=== PATIENT | female | born 1935 | race Caucasian/White ===

== ENCOUNTER 2024-08-22 17:44 | Inpatient (IN) | payer MEDICARE ==
[~2024-08-22] VITALS: Ht 162.5 cm; Wt 71.8 kg
[~2024-08-22 17:44] MED LIST: ALDACTONE25 M1 PO; ALDACTONE25 MG PO; AMLODIPINE BESYL5 MG PO; AMOX-CLAV 875-1 EACH PO; AMOXICILLIN500 M2 PO; B121000 MCG/1 IM; CIPRO500 MG PO; ELIQUIS5 M1 PO; FEROSUL325 M1 PO; IRON325 M1 PO; KLOR-CON 1010 ME1 PO; METFORMIN HYDR500 MG PO; METOPROLOL SUCC50 M1 PO; ONDANSETRON HYDR4 MG PO; ONDANSETRON4 MG PO; PANTOPRAZOLE SO40 MG PO; POTASSIUM CHLO10 ME4 PO; PROTONIX40 MG PO; SOAANZ20 M1 PO; TORSEMIDE20 MG PO; VASCEPA1 G1 PO; VIBRAMYCIN HYC100 MG PO; VITAMIN D350 MC2 PO
[2024-08-22 17:51] VITALS: BP 119/59
[2024-08-22 18:09] LABS: BASO % 0.4 % (0.0-1.0); EOS # 0.2 10*3/uL (0.0-0.4); EOS % 2.1 % (1.0-4.0); HEMATOCRIT 41.5 % (37.0-47.0); MEAN CELL VOLUME 95.4 fl (81.0-99.0); MEAN CORPUSCULAR HGB 30.8 pg (27.0-31.0); MEAN CORPUSCULAR HGB CONC 32.3 g/dl (33.0-37.0); MEAN PLATELET VOLUME 9.1 fl (9.6-12.3); MONO # 0.9 10*3/uL (0.1-1.0); MONO % 8.7 % (3.0-9.0); NEUT # 7.8 10*3/uL (2.3-7.9); NEUT % 74.9 % (47.0-73.0); PLATELET COUNT AUTOMATED 214 10*3/uL (130-400); RED BLOOD COUNT 4.35 10*6/uL (4.10-5.10); RED CELL DISTRI WIDTH 13.3 % (0-14.5); WHITE BLOOD COUNT 10.4 10*3/uL (4.8-10.8)
[2024-08-22 18:27] LABS: POTASSIUM 4.1 mmol/L (3.4-5.1)
[2024-08-22] MEDS ORDERED: Meropenem 1 GM in SODIUM CHLORIDE 0.9% 100 ML IV ONE (18:30)
[2024-08-22 19:55] VITALS: BP 114/63
[2024-08-22] MEDS ORDERED: BISACODYL 5 MG TAB PO PRN (20:50)
[2024-08-22] MEDS ORDERED: Acetaminophen/Hydrocodone 5 MG/325 MG TABLET PO PRN (20:50)
[2024-08-22] MEDS ORDERED: BISACODYL 10 MG SUPP R PRN (20:50)
[2024-08-22] MEDS ORDERED: Ondansetron Hydrochloride 4 MG/2 ML VIAL IV PRN (20:50)
[2024-08-22] MEDS ORDERED: ACETAMINOPHEN 325 MG TAB PO PRN (20:50)
[2024-08-22] MEDS ORDERED: ACETAMINOPHEN 650 MG SUPP R PRN (20:50)
[2024-08-22] MEDS ORDERED: TEMAZEPAM 15 MG CAP PO PRN (20:50)
[2024-08-22] MEDS ORDERED: FUROSEMIDE 20 MG/2 ML VIAL IV ONE (21:10)
[2024-08-22] MEDS ORDERED: DEXTROSE 10 % IN WATER 250 ML IV PRN (21:50)
[2024-08-22] MEDS ORDERED: INSULIN LISPRO 1 UNIT/0.01 ML SQ SCH (22:00)
[2024-08-22] MEDS ORDERED: APIXABAN 5 MG TAB PO SCH (22:00)
[2024-08-22 22:07] LABS: BILIRUBIN Negative (Negative); BLOOD Negative (Negative); CLARITY Clear (Clear); COLOR Yellow (Yellow); GLUCOSE Negative (Negative); KETONE Negative (Negative); LEUKO ESTERASE Trace (Negative); NITRITE Positive (Negative); PH 5.5 (4.5-8.0); SPECIFIC GRAVITY 1.015 (1.001-1.030); UROBILINOGEN 0.2 E.U./dl (0.0-1.0)
[2024-08-22 22:27] LABS: BACTERIA 1+
[2024-08-22] MEDS ORDERED: Vancomycin Hydrochloride 1,000 MG in SODIUM CHLORIDE 0.9% 250 ML IV SCH (23:00)
[2024-08-23 00:02] VITALS: BP 113/60
[2024-08-23] MEDS ORDERED: Pantoprazole Sodium 40 MG TAB PO SCH (06:00)
[2024-08-23 06:38] LABS: BASO % 0.4 % (0.0-1.0); EOS # 0.2 10*3/uL (0.0-0.4); EOS % 2.1 % (1.0-4.0); HEMATOCRIT 39.7 % (37.0-47.0); MEAN CORPUSCULAR HGB 30.9 pg (27.0-31.0); MEAN CORPUSCULAR HGB CONC 32.5 g/dl (33.0-37.0); MEAN PLATELET VOLUME 9.2 fl (9.6-12.3); MONO # 0.9 10*3/uL (0.1-1.0); MONO % 8.9 % (3.0-9.0); NEUT # 7.3 10*3/uL (2.3-7.9); NEUT % 76.6 % (47.0-73.0); PLATELET COUNT AUTOMATED 188 10*3/uL (130-400); RED BLOOD COUNT 4.18 10*6/uL (4.10-5.10); RED CELL DISTRI WIDTH 13.4 % (0-14.5); WHITE BLOOD COUNT 9.6 10*3/uL (4.8-10.8)
[2024-08-23 07:12] LABS: POTASSIUM 3.8 mmol/L (3.4-5.1); TOTAL PROTEIN 6.4 gm/dL (6.0-8.0)
[2024-08-23 08:04] VITALS: BP 103/65
[2024-08-23] MEDS ORDERED: METOPROLOL SUCCINATE XR 50 MG TAB PO SCH (10:00)
[2024-08-23] MEDS ORDERED: SPIRONOLACTONE 25 MG TAB PO SCH (10:00)
[2024-08-23] MEDS ORDERED: FUROSEMIDE 20 MG/2 ML VIAL IV SCH (10:00)
[2024-08-23] MEDS ORDERED: POTASSIUM CHLORIDE 10 MEQ TAB PO SCH (10:00)
[2024-08-23] MEDS ORDERED: Meropenem 1 GM in SODIUM CHLORIDE 0.9% 100 ML IV SCH (10:00)
[2024-08-23] MEDS ORDERED: MUPIROCIN 15 GM TUBE T SCH (14:17)
[2024-08-23 16:08] VITALS: BP 102/36
[2024-08-23] MEDS ORDERED: Meropenem 50 ML IV SCH (18:00)
[2024-08-23 18:41] VITALS: BP 142/87
[2024-08-23] MEDS ORDERED: NYSTOP60 GM T (19:01)
[2024-08-23] MEDS ORDERED: TYLENOL325 M2 PO (19:03)
[2024-08-23 20:00] VITALS: BP 116/79
[2024-08-23] MEDS ORDERED: NYSTATIN 15 GM BOT T SCH (22:00)
[2024-08-24] VITALS: BP 122/50
[2024-08-24 06:48] LABS: POTASSIUM 4.3 mmol/L (3.4-5.1)
[2024-08-24 08:00] VITALS: BP 129/76
[2024-08-24 12:00] VITALS: BP 126/76
[2024-08-24 16:00] VITALS: BP 129/74
[2024-08-24 20:00] VITALS: BP 123/67
[2024-08-25] VITALS: BP 128/72
[2024-08-25 06:32] LABS: BASO % 0.3 % (0.0-1.0); EOS # 0.3 10*3/uL (0.0-0.4); EOS % 3.8 % (1.0-4.0); HEMATOCRIT 39.4 % (37.0-47.0); MEAN CELL VOLUME 94.5 fl (81.0-99.0); MEAN CORPUSCULAR HGB 30.9 pg (27.0-31.0); MEAN CORPUSCULAR HGB CONC 32.7 g/dl (33.0-37.0); MEAN PLATELET VOLUME 9.3 fl (9.6-12.3); MONO # 0.9 10*3/uL (0.1-1.0); MONO % 10.5 % (3.0-9.0); NEUT % 68.2 % (47.0-73.0); PLATELET COUNT AUTOMATED 187 10*3/uL (130-400); RED BLOOD COUNT 4.17 10*6/uL (4.10-5.10); RED CELL DISTRI WIDTH 13.8 % (0-14.5); WHITE BLOOD COUNT 8.8 10*3/uL (4.8-10.8)
[2024-08-25 06:44] LABS: POTASSIUM 4.5 mmol/L (3.4-5.1)
[2024-08-25 08:00] VITALS: BP 155/68
[2024-08-25] MEDS ORDERED: Meropenem 1 GM VIAL IV ONE (08:17)
[2024-08-25] MEDS ORDERED: SODIUM CHLORIDE 0.9% 50 ML BAG IV ONE (08:17)
[2024-08-25] MEDS ORDERED: Vancomycin Hydrochloride 1,000 MG in SODIUM CHLORIDE 0.9% 250 ML IV SCH (10:00)
[2024-08-25] MEDS ORDERED: TORSEMIDE 20 MG TAB PO SCH (10:00)
[2024-08-25 12:00] VITALS: BP 118/55; BP 146/66
[2024-08-25 16:00] VITALS: BP 119/60
[2024-08-25 20:00] VITALS: BP 149/90
[2024-08-26] VITALS: BP 133/83
[2024-08-26 06:57] LABS: POTASSIUM 3.8 mmol/L (3.4-5.1)
[2024-08-26 08:00] VITALS: BP 114/68
[2024-08-26] MEDS ORDERED: ALDACTONE25 M1 PO (11:21)
[2024-08-26 12:00] VITALS: BP 132/73
== END 2024-08-26 17:28 | disposition home health service (06) | DRG 602 ==
LOC: ED 17:44 → EDHOLD 18:36 → 4E 08-23 17:57
PROVIDERS: Emergency Medicine; Student in an Organized Health Care Education/Training Program; ADMIT Internal Medicine; ATTEND Internal Medicine
DX: L03.116 Cellulitis of left lower limb (principal); N17.0 Acute kidney failure with tubular necrosis; E87.20 Acidosis, unspecified; I50.22 Chronic systolic (congestive) heart failure; N30.00 Acute cystitis without hematuria; I13.0 Hypertensive heart and chronic kidney disease with heart failure and stage 1 through stage 4 chronic kidney disease, or unspecified chronic kidney disease; I48.21 Permanent atrial fibrillation; B96.89 Other specified bacterial agents as the cause of diseases classified elsewhere; N18.32 Chronic kidney disease, stage 3b; Z66 Do not resuscitate; E78.2 Mixed hyperlipidemia; K21.9 Gastro-esophageal reflux disease without esophagitis; E11.65 Type 2 diabetes mellitus with hyperglycemia; E11.22 Type 2 diabetes mellitus with diabetic chronic kidney disease; E55.9 Vitamin D deficiency, unspecified; Z86.73 Personal history of transient ischemic attack (TIA), and cerebral infarction without residual deficits; Z51.5 Encounter for palliative care; Z90.710 Acquired absence of both cervix and uterus; Z90.49 Acquired absence of other specified parts of digestive tract; Z95.2 Presence of prosthetic heart valve; Z88.2 Allergy status to sulfonamides; Z88.8 Allergy status to other drugs, medicaments and biological substances; Z79.84 Long term (current) use of oral hypoglycemic drugs; Z79.899 Other long term (current) drug therapy

== ENCOUNTER 2024-09-20 15:10 | Emergency (ER) | payer MEDICARE ==
[~2024-09-20] VITALS: Ht 162.5 cm; Wt 72.6 kg
[~2024-09-20 15:10] MED LIST changes: +NYSTOP60 GM T; +TYLENOL325 M2 PO
[2024-09-20 15:37] LABS: BASO % 0.5 % (0.0-1.0); EOS # 0.2 10*3/uL (0.0-0.4); EOS % 1.9 % (1.0-4.0); HEMATOCRIT 42.5 % (37.0-47.0); MEAN CELL VOLUME 94.7 fl (81.0-99.0); MEAN CORPUSCULAR HGB 31.4 pg (27.0-31.0); MEAN CORPUSCULAR HGB CONC 33.2 g/dl (33.0-37.0); MEAN PLATELET VOLUME 9.1 fl (9.6-12.3); MONO % 11.8 % (3.0-9.0); NEUT # 5.4 10*3/uL (2.3-7.9); NEUT % 64.3 % (47.0-73.0); PLATELET COUNT AUTOMATED 195 10*3/uL (130-400); RED BLOOD COUNT 4.49 10*6/uL (4.10-5.10); RED CELL DISTRI WIDTH 13.5 % (0-14.5); WHITE BLOOD COUNT 8.5 10*3/uL (4.8-10.8)
[2024-09-20 15:59] LABS: POTASSIUM 4.2 mmol/L (3.4-5.1)
== END 2024-09-20 17:14 | disposition home or self-care (01) ==
LOC: ED 15:10
PROVIDERS: Emergency Medicine
DX: M79.89 Other specified soft tissue disorders (principal); E11.22 Type 2 diabetes mellitus with diabetic chronic kidney disease; I13.0 Hypertensive heart and chronic kidney disease with heart failure and stage 1 through stage 4 chronic kidney disease, or unspecified chronic kidney disease; N18.9 Chronic kidney disease, unspecified; E78.5 Hyperlipidemia, unspecified; I48.91 Unspecified atrial fibrillation; Z88.2 Allergy status to sulfonamides; Z88.8 Allergy status to other drugs, medicaments and biological substances; Z90.710 Acquired absence of both cervix and uterus; Z90.49 Acquired absence of other specified parts of digestive tract; Z98.890 Other specified postprocedural states

== ENCOUNTER 2025-02-23 21:56 | Emergency (ER) | payer MEDICARE ==
[~2025-02-23 21:56] MED LIST changes: +AMOXICILLIN500 M3 PO; +ELIQUIS2.5 M1 PO; +FOSFOMYCIN TROME3 GM PO; -ONDANSETRON4 MG PO; +Ondansetron4 MG PO; +VIBRAMYCIN100 MG PO
== END 2025-02-23 23:31 ==
LOC: ED 21:56
DX: S00.03XA Contusion of scalp, initial encounter (principal); E11.9 Type 2 diabetes mellitus without complications; Z88.2 Allergy status to sulfonamides; Z79.899 Other long term (current) drug therapy; Z79.84 Long term (current) use of oral hypoglycemic drugs; Z90.710 Acquired absence of both cervix and uterus; Z90.49 Acquired absence of other specified parts of digestive tract; W01.0XXA Fall on same level from slipping, tripping and stumbling without subsequent striking against object, initial encounter; Y93.01 Activity, walking, marching and hiking; Y92.89 Other specified places as the place of occurrence of the external cause; Y99.8 Other external cause status

== ENCOUNTER 2025-04-06 12:09 | Emergency (ER) | payer MEDICARE ==
[~2025-04-06 12:09] MED LIST changes: +B121000 MCG/2 IM; +Zaroxolyn,Diul2.5 MG PO
[2025-04-06 12:49] LABS: BASO % 0.5 % (0.0-1.0); EOS # 0.2 10*3/uL (0.0-0.4); EOS % 2.8 % (1.0-4.0); HEMATOCRIT 39.7 % (37.0-47.0); MEAN CELL VOLUME 98.8 fl (81.0-99.0); MEAN CORPUSCULAR HGB 31.1 pg (27.0-31.0); MEAN CORPUSCULAR HGB CONC 31.5 g/dl (33.0-37.0); MEAN PLATELET VOLUME 8.9 fl (9.6-12.3); NEUT % 68.8 % (47.0-73.0); PLATELET COUNT AUTOMATED 209 10*3/uL (130-400); RED BLOOD COUNT 4.02 10*6/uL (4.10-5.10); RED CELL DISTRI WIDTH 15.9 % (0-14.5); WHITE BLOOD COUNT 8.6 10*3/uL (4.8-10.8)
[2025-04-06 13:19] LABS: POTASSIUM 4.4 mmol/L (3.4-5.1); TOTAL PROTEIN 6.4 gm/dL (6.0-8.0)
[2025-04-06] MEDS ORDERED: Phenylephrine Hydrochloride 0.25% Nasal 40 ml bottle NAS ONE (13:55)
== END 2025-04-06 15:57 | disposition home or self-care (01) ==
LOC: ED 12:09
PROVIDERS: Nurse Practitioner
DX: R04.0 Epistaxis (principal); E11.9 Type 2 diabetes mellitus without complications; K21.9 Gastro-esophageal reflux disease without esophagitis; F03.90 Unspecified dementia, unspecified severity, without behavioral disturbance, psychotic disturbance, mood disturbance, and anxiety; Z88.2 Allergy status to sulfonamides; Z88.8 Allergy status to other drugs, medicaments and biological substances; Z79.899 Other long term (current) drug therapy; Z79.84 Long term (current) use of oral hypoglycemic drugs; Z90.710 Acquired absence of both cervix and uterus; Z90.49 Acquired absence of other specified parts of digestive tract